=== PATIENT | female | born 1945 | race Caucasian/White ===

== ENCOUNTER → 2017-02-19 | Outpatient (CLI) | payer OTHER | LOC: FIMAGING 08:46 | PROVIDERS: ATTEND Family Medicine Sports Medicine | DX: Z12.31 Encounter for screening mammogram for malignant neoplasm of breast (principal); Z13.820 Encounter for screening for osteoporosis; M85.80 Other specified disorders of bone density and structure, unspecified site; E78.5 Hyperlipidemia, unspecified; Z82.49 Family history of ischemic heart disease and other diseases of the circulatory system; Z78.0 Asymptomatic menopausal state | CPT/HCPCS: G0202 ==

== ENCOUNTER 2017-05-20 06:21 | Emergency (ER) | payer OTHER ==
[2017-05-20] MEDS ORDERED: ONDANSETRON 4 MG/2 ML VIAL ONE (06:47)
[2017-05-20] MEDS ORDERED: NS 1,000 ML IV ONE ×2 (06:49→07:23)
[2017-05-20] MEDS ORDERED: ONDANSETRON 4 MG/2 ML VIAL IVP ONE (06:49)
[2017-05-20 06:58] LABS: % IMMATURE GRANULYOCYTES 0.2 % (0.0-1.1); ABSOLUTE IMMATURE GRANULOCYTES 0.01 10^3/uL (0.00-0.10); ADD DIFF? NO; ADD MORPH? NO; ADD SCAN? NO; ATYPICAL LYMPHOCYTE FLAG 10 (0-99); FRAGMENT RBC FLAG 0 (0-99); HEMATOCRIT 44.7 % (38.0-47.0); HEMOGLOBIN 15.4 g/dL (12.6-16.3); LEFT SHIFT FLG 0 (0-99); LIPEMIA HEMOLYSIS FLAG 90 (0-99); MEAN CELL HEMOGLOBIN 30.9 pg (27.9-34.1); MEAN CELL HEMOGLOBIN CONCENTR. 34.5 g/dL (32.4-36.7); MEAN CELL VOLUME 89.8 fL (81.5-99.8); MEAN PLATELET VOLUME 8.9 fL (8.7-11.7); PLATELET CLUMPS FLAG 10 (0-99); PLATELET COUNT 212 10^3/uL (150-400); RED BLOOD CELL COUNT 4.98 10^6/uL (4.18-5.33); RED CELL DISTRIBUTION WIDTH 12.7 % (11.5-15.2)
[2017-05-20] MEDS ORDERED: HYDROmorphONE/DILAUDID 1 MG/ML INJ IVP ONE ×3 (07:08→07:53)
[2017-05-20 07:10] LABS: COLOR YELLOW; LEUKOCYTE ESTERASE,URINE NEGATIVE (NEGATIVE); NITRITE,URINE NEGATIVE (NEGATIVE)
[2017-05-20 07:17] LABS: ANION GAP 12 mEq/L (8-16); CALCIUM 9.5 mg/dL (8.5-10.4); CARBON DIOXIDE 26 mEq/l (22-31); CHLORIDE 104 mEq/L (97-110); CREATININE 0.8 mg/dL (0.6-1.0); GLOMERULAR FILTRATION RATE > 60; GLUCOSE 97 mg/dL (70-100); POTASSIUM 4.9 mEq/L (3.5-5.2); SODIUM 142 mEq/L (134-144); SPECIMEN HEMOLYSIS 143
[2017-05-20 07:18] VITALS: RESP 16
[2017-05-20 07:20] LABS: MUCUS TRACE /lpf (NONE-1+); RBC,URINE 50-182 /hpf (0-3)
[2017-05-20] MEDS ORDERED: KETOROLAC 30 MG/1 ML SDV IVP ONE (07:20)
--- NOTE | 2017-05-20 07:27 | EDPHY ---
H & P Time Seen by Provider: 05/20/17 07:03 HPI/ROS: Chief complaint. Abdominal pain HPI. 72-year-old female who awakened at 5:30 a.m. this morning with right flank pain. She has had nausea and vomiting. The pain is severe. She can't find a comfortable position. No increased pain with movement. No chest pain or shortness of breath. No fever. No left-sided discomfort. She has a history of kidney stones and this feels similar. No urinary symptoms ROS Constitutional. no fever/chills, no weakness Eyes. no problems with vision ENT. no sore throat, no nasal drainage Cardiovascular. no chest pain Respiratory. no shortness of breath, no cough Abdominal. Right flank pain with nausea and vomiting . no problems urinating MS. no calf pain/swelling, no neck/back pain, no joint pain Skin. no rash Lymph. no swollen glands Neuro. no headache, no dizziness, no difficulty walking or with speech Past Medical/Surgical History: Kidney stones, dyslipidemia Social History: , nonsmoker, no Smoking Status: Former smoker Physical Exam: General Appearance: Alert pleasant well-developed female moderate distress vital signs are stable Eyes: Pupils equal and round no pallor or injection. ENT, Mouth: Mucous membranes are moist. Respiratory: There are no retractions, lungs are clear to auscultation. Cardiovascular: Regular rate and rhythm. Gastrointestinal: Abdomen is soft and nontender, no masses, bowel sounds normal. Patient shows me pain in the right flank however there is no pain to palpation. No anterior abdominal tenderness Neurological: Awake and alert, sensory and motor exams grossly normal. Skin: Warm and dry, no rashes. Musculoskeletal: Neck is supple nontender. Extremities symmetrical, full range of motion. Psychiatric: Patient is oriented X 3, there is no agitation. Constitutional: Initial Vital Signs Temperature (C) 36.6 C 05/20/17 06:28 Heart Rate 61 05/20/17 06:28 Respiratory Rate 18 05/20/17 06:28 Blood Pressure 145/78 H 05/20/17 06:28 O2 Sat (%) 100 05/20/17 06:28 O2 Delivery Mode Nasal Cannula O2 (L/minute) 2 Allergies/Adverse Reactions: cefaclor [From Ceclor] Allergy (Mild, Verified 05/20/17 06:31) Rash Home Medications: Medication Instructions Recorded Atorvastatin Calcium [Lipitor] 20 mg PO DAILY 11/07/15 Ondansetron Odt [Zofran Odt] 4 mg PO Q4PRN PRN #4 tab 05/20/17 oxyCODONE/APAP 5/325 [Percocet 1 tab PO Q4-6PRN PRN #14 tab 05/20/17 5/325] Medical Decision Making - Diagnostics Imaging Results: Imaging Impressions Abdomen/Pelvis CT 05/20/17 07:23 Impression: 1. Small, 3 mm, distal right ureteral calculus, at the ureterovesical junction resulting in mild hydronephrosis and hydroureter. 2. Bilateral nephrolithiasis. Findings discussed with Emergency Department physician, Mirza Maynard on May 20, 2017 at 8:00 a.m. Attention: This CT examination is specifically designed to evaluate patients who are clinically suspected of having acute obstructive uropathy. This examination does not use radiographic contrast, and as such, provides only a limited evaluation of the abdomen, pelvis and retroperitoneum. If there is further clinical suspicion for pathological conditions other than obstructive uropathy, a complete CT evaluation of the abdomen and pelvis utilizing intravenous, oral, and rectal contrast should be considered. CT abdomen and pelvis without IV contrast reviewed by me and discussed with Dr. Mcintosh shows a 3 mm right UVJ stone with mild right hydronephrosis Procedures: IV normal saline. Toradol and Dilaudid for pain ED Course/Re-evaluation: 7:30 a.m. patient continues to have pain and is given further Dilaudid IV 7:55 a.m. patient returns from CT. She is nauseated and having continued pain. She is given IV Phenergan and another 0.5 mg of Dilaudid Re-evaluation 9:15 a.m. and patient is pain-free. We will observe the patient for approximately another 30 minutes and if painfree we will discharge. The patient and I discussed imaging and lab results. We discussed treatment plan including criteria for return importance of follow-up further evaluation. She expresses understanding and agreement Re-evaluation again at 10:15 a.m. patient is pain-free. She feels well to go Differential Diagnosis: I considered kidney stone, kidney infection, urinary tract infection. - Data Points Laboratory Results: Laboratory Results 05/20/17 06:44 05/20/17 06:44 05/20/17 05/20/17 05/20/17 06:55 06:44 06:44 WBC 5.27 10^3/uL 10^3/uL (3.80-9.50) RBC 4.98 10^6/uL 10^6/uL (4.18-5.33) Hgb 15.4 g/dL g/dL (12.6-16.3) Hct 44.7 % % (38.0-47.0) MCV 89.8 fL fL (81.5-99.8) MCH 30.9 pg pg (27.9-34.1) MCHC 34.5 g/dL g/dL (32.4-36.7) RDW 12.7 % % (11.5-15.2) Plt Count 212 10^3/uL 10^3/uL (150-400) MPV 8.9 fL fL (8.7-11.7) Neut % (Auto) 56.3 % % (39.3-74.2) Lymph % (Auto) 34.0 % % (15.0-45.0) [place] % (Auto) 6.5 % % (4.5-13.0) Eos % (Auto) 2.1 % % (0.6-7.6) Baso % (Auto) 0.9 % % (0.3-1.7) Nucleat RBC Rel Count 0.0 % % (0.0-0.2) Absolute Neuts (auto) 2.97 10^3/uL 10^3/uL (1.70-6.50) Absolute Lymphs (auto) 1.79 10^3/uL 10^3/uL (1.00-3.00) Absolute Monos (auto) 0.34 10^3/uL 10^3/uL (0.30-0.80) Absolute Eos (auto) 0.11 10^3/uL 10^3/uL (0.03-0.40) Absolute Basos (auto) 0.05 10^3/uL 10^3/uL (0.02-0.10) Absolute Nucleated RBC 0.00 10^3/uL 10^3/uL (0-0.01) Immature Gran % 0.2 % % (0.0-1.1) Immature Gran # 0.01 10^3/uL 10^3/uL (0.00-0.10) Sodium 142 mEq/L mEq/L (134-144) Potassium 4.9 mEq/L mEq/L (3.5-5.2) Chloride 104 mEq/L mEq/L (97-110) Carbon Dioxide 26 mEq/l mEq/l (22-31) Anion Gap 12 mEq/L mEq/L (8-16) BUN 20 mg/dL mg/dL (7-23) Creatinine 0.8 mg/dL mg/dL (0.6-1.0) Estimated GFR > 60 Glucose 97 mg/dL mg/dL (70-100) Calcium 9.5 mg/dL mg/dL (8.5-10.4) Specimen Hemolysis 143 Urine Color YELLOW Urine Appearance CLEAR Urine pH 6.0 (5.0-7.5) Ur Specific [place] 1.017 (1.002-1.030) Urine Protein NEGATIVE (NEGATIVE) Urine Ketones NEGATIVE (NEGATIVE) Urine Blood 2+ H (NEGATIVE) Urine Nitrate NEGATIVE (NEGATIVE) Urine Bilirubin NEGATIVE (NEGATIVE) Urine Urobilinogen NEGATIVE EU EU (0.2-1.0) Ur Leukocyte Esterase NEGATIVE (NEGATIVE) Urine RBC 50-182 /hpf H /hpf (0-3) Urine WBC 1-3 /hpf /hpf (0-3) Ur Epithelial Cells TRACE /lpf /lpf (NONE-1+) Urine Mucus TRACE /lpf /lpf (NONE-1+) Urine Glucose NEGATIVE (NEGATIVE) Medications Given: Discontinued Medications Hydromorphone HCl (Dilaudid) 0.5 mg IVP EDNOW ONE Stop: 05/20/17 07:09 Last Admin: 05/20/17 07:13 Dose: 0.5 mg Hydromorphone HCl (Dilaudid) 0.5 mg IVP EDNOW ONE Stop: 05/20/17 07:33 Last Admin: 05/20/17 07:34 Dose: 0.5 mg Hydromorphone HCl (Dilaudid) 0.5 mg IVP EDNOW ONE Stop: 05/20/17 07:54 Last Admin: 05/20/17 07:56 Dose: 0.5 mg Sodium Chloride (Ns) 1,000 mls @ 0 mls/hr IV ONCE ONE PRN Reason: Wide Open Stop: 05/20/17 06:50 Last Admin: 05/20/17 06:55 Dose: 1,000 mls Sodium Chloride (Ns) 1,000 mls @ 0 mls/hr IV EDNOW ONE; Wide Open PRN Reason: Protocol Stop: 05/20/17 07:24 Last Admin: 05/20/17 07:35 Dose: 1,000 mls Lidocaine HCl 60 mg/ Sodium (Chloride) 106 mls @ 600 mls/hr IV EDNOW ONE Stop: 05/20/17 08:09 Last Admin: 05/20/17 08:23 Dose: 106 mls Ketorolac Tromethamine (Toradol) 30 mg IVP EDNOW ONE Stop: 05/20/17 07:21 Last Admin: 05/20/17 07:22 Dose: 30 mg Ondansetron HCl (Zofran) 4 mg IVP EDNOW ONE Stop: 05/20/17 06:50 Last Admin: 05/20/17 06:55 Dose: 4 mg Promethazine HCl (Phenergan) 12.5 mg IVP EDNOW ONE Stop: 05/20/17 07:54 Last Admin: 05/20/17 07:57 Dose: 12.5 mg Departure - Departure Disposition: Home, Routine, Self-Care Clinical Impression: Renal colic on right side Condition: Good Instructions: Kidney Stones (ED), Renal Colic (ED) Additional Instructions: Drink plenty of fluids and stay hydrated. Strain all urine next 24 hours and save stone for analysis. Ibuprofen 600 mg every 6 hours, Percocet in addition if necessary for pain. Zofran as needed for nausea. Return for worsening symptoms. Follow up with Urology for further evaluation of kidney stone Referrals: Mina Mendoza MD [Primary Care Provider] - As per Instructions Larry Calvillo MD [Medical Doctor] - As per Instructions Prescriptions: Ondansetron Odt [Zofran Odt] 4 mg PO Q4PRN PRN #4 tab PRN Reason: Nausea/Vomiting, Use 1st oxyCODONE/APAP 5/325 [Percocet 5/325] 1 tab PO Q4-6PRN PRN #14 tab PRN Reason: Pain, Moderate
[2017-05-20] MEDS ORDERED: PROMETHAZINE HCL 25 MG/ML INJ IVP ONE (07:53)
[2017-05-20] MEDS ORDERED: LIDOCAINE IV ONE (07:59)
[2017-05-20] MEDS ORDERED: NS IV ONE (07:59)
[2017-05-20 08:02] VITALS: TEMP 97.5
[2017-05-20 10:34] VITALS: BP 165/79; PULSE 62; O2SAT 94
== END 2017-05-20 10:42 | disposition home or self-care (01) ==
DX: N23 Unspecified renal colic (principal); E86.9 Volume depletion, unspecified; Z87.891 Personal history of nicotine dependence
CPT/HCPCS: 96374; J1170; J1885; J2405; J2550